=== PATIENT | male | born 1955 ===

== ENCOUNTER → 2024-05-07 08:00 | Outpatient (CLI) | payer OTHER ==
[~2024-05-07] VITALS: Ht 172.7 cm; Wt 80.3 kg
[2024-05-07 12:52] VITALS: BP 145/66
[2024-05-07 14:54] LABS: RH POSITIVE
== END | disposition home or self-care (01) ==
LOC: EKG 08:00 → EDSTATUS 05-11 11:15 → SURH 05-11 11:15
PROVIDERS: ATTEND Orthopaedic Surgery
DX: M17.12 Unilateral primary osteoarthritis, left knee (principal)